=== PATIENT | male | born 2005 | race Caucasian/White ===

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

== ENCOUNTER 2023-03-27 20:02 | Emergency (ER) | payer OTHER, BC, MEDICAID, SELFPAY ==
[2023-03-27 20:07] VITALS: BP 150/83; PULSE 86; RESP 16; TEMP 36.6; O2SAT 100; BMI 39.2
[2023-03-27 20:23] LABS: Basophils # 0.1 10^3/uL (0.0-0.1); Basophils % 0.6 %; Eosinophils # 0.4 10^3/uL (0.0-0.8); Eosinophils % 4.6 %; Hematocrit 48.2 % (42.0-52.0); Hemoglobin 16.2 g/dL (11.7-16.6); Lymphocytes # 3.3 10^3/uL (1.5-6.5); Lymphocytes % 38.2 %; Mean Corpuscular HGB Conc 33.6 g/dL (30.0-36.0); Mean Corpuscular Hemoglobin 28.8 pg (28.0-34.0); Mean Corpuscular Volume 85.6 fl (80-94); Mean Platelet Volume 9.9 fL (7.4-10.4); Monocytes # 0.8 10^3/uL (0.2-0.9); Monocytes % 9.8 %; Neutrophils # 3.97 10^3/uL (1.8-8.0); Neutrophils % 46.4 %; Nucleated Red Blood Cells % 0 %; Platelet Count 283 10^3/cmm (130-400); Red Blood Count 5.63 10^6/uL (4.1-5.3); White Blood Count 8.5 10^3/uL (4.5-13.0)
--- NOTE | 2023-03-27 20:27 | ED_ITS ---
HPI - Abdominal Pain General: Chief Complaint: Abdominal Pain Stated Complaint: Abd pain Time Seen by Provider: 03/27/23 20:27 History of Present Illness: 17-year-old male presenting with abdominal pain that is progressively worsening. Worse with eating especially greasy and fatty foods. Moderate to severe intensity with some nausea vomiting. Intermittent. Upper abdominal and right upper quadrant tenderness to palpation in location of pain. No other specific changes in health, exacerbating, or alleviating factors identified. Onset (ago): week(s) Pain Consistency: intermittent Location: Epigastric and RUQ Quality: stabbing Exacerbating factors: eating Associated Symptoms: Reports nausea and vomiting; Denies fever(s), hematemesis and melena Review of Systems General: Reports: 10 or more systems reviewed and unremarkable except in HPI and below Const: Denies: fever(s) GI: Reports: nausea and vomiting; Denies: hematemesis or melena PFS ED PFSH: Medical History No pertinent past medical history Social History Smoking and tobacco status: current every day smoker cigarettes Alcohol intake: never Substance/Drug Use: never Physical Exam Const: COMMON NORMALS: alert GENERAL APPEARANCE: cooperative and well developed HENMT: COMMON NORMALS: normocephalic and atraumatic HEAD & SCALP: normocephalic and atraumatic Eye: COMMON NORMALS: conjunctivae normal CONJUNCTIVA: Yes conjunctivae normal SCLERA: sclerae normal Neck/C-Spine: COMMON NORMALS: supple GENERAL: Yes trachea midline Resp: COMMON NORMALS: normal respiratory effort EFFORT & INSPECTION: Yes able to speak in complete sentences Cardio: COMMON NORMALS: regular rate and regular rhythm RATE: regular rate RHYTHM: regular rhythm GI: COMMON NORMALS: Soft to palpation PALPATION: Yes Soft to palpation, Yes Tenderness to palpation present (GI) Details: RUQ, No Guarding due to palpation present (GI) and No Rigid due to palpation PERCUSSION: normal to percussion Extremity: GENERAL: Yes normal exam except as noted and No edema Neuro: COMMON NORMALS: moves all extremities SENSORIUM/ORIENTATION: Yes alert and No Orientation impaired Psych: COMMON NORMALS: mental status grossly normal and Normal thought process present THOUGHT PROCESS: Normal thought process present Course Vital Signs: Vital signs: Vital Signs Temperature 97.9 F 03/27/23 20:07 Pulse Rate 88 03/27/23 22:39 Respiratory Rate 18 03/27/23 22:39 Blood Pressure 154/104 03/27/23 22:39 Pulse Oximetry 92 03/27/23 22:39 Oxygen Delivery Me thod Room Air 03/27/23 20:07 MDM - Abdominal Pain Medical Decision Making 17-year-old male presenting with epigastric and right upper quadrant pain. Abdominal tenderness to palpation without acute surgical abdomen. Nontoxic. No fevers. Labs with no leukocytosis, normal hemoglobin and platelet count. Unremarkable hematologic panel. Normal liver enzymes and lipase. No UTI. Gallbladder ultrasound shows possible cholelithiasis though no evidence of cholecystitis. Patient improved with GI cocktail and Protonix. Possible biliary colic or gastritis. No indication for CT. Plan for outpatient follow-up. The results of ED evaluation were discussed with the patient including prescriptions and/or symptomatic cares (if applicable) including appropriate and responsible use, followup plan, and return precautions. The patient verbalized understanding and felt safe for discharge. Medical Records I reviewed the patient's medical records. Lab Data I reviewed the patient's lab results. 03/27/23 20:18 03/27/23 20:18 Labs/Radiology: Radiology Impressions Gallbladder Ultrasound 03/27/23 20:57 IMPRESSION: 1. Equivocal cholelithiasis, negative for cholecystitis. 2. Hepatic steatosis. Laboratory Results WBC 8.5 10^3/uL (4.5-13.0) 03/27/23 20:18 RBC 5.63 10^6/uL (4.1-5.3) H 03/27/23 20:18 Hgb 16.2 g/dL (11.7-16.6) 03/27/23 20:18 Hct 48.2 % (42.0-52.0) 03/27/23 20:18 MCV 85.6 fl (80-94) 03/27/23 20:18 MCH 28.8 pg (28.0-34.0) 03/27/23 20:18 MCHC 33.6 g/dL (30.0-36.0) 03/27/23 20:18 RDW 13.0 % (12.1-15.1) 03/27/23 20:18 Plt Count 283 10^3/cmm (130-400) 03/27/23 20:18 MPV 9.9 fL (7.4-10.4) 03/27/23 20:18 Neut % (Auto) 46.4 % 03/27/23 20:18 Lymph % (Auto) 38.2 % 03/27/23 20:18 [place] % (Auto) 9.8 % 03/27/23 20:18 Eos % (Auto) 4.6 % 03/27/23 20:18 Baso % (Auto) 0.6 % 03/27/23 20:18 Neut # (Auto) 3.97 10^3/uL (1.8-8.0) 03/27/23 20:18 Lymph # (Auto) 3.3 10^3/uL (1.5-6.5) 03/27/23 20:18 [place] # (Auto) 0.8 10^3/uL (0.2-0.9) 03/27/23 20:18 Eos # (Auto) 0.4 10^3/uL (0.0-0.8) 03/27/23 20:18 Baso # (Auto) 0.1 10^3/uL (0.0-0.1) 03/27/23 20:18 Nucleated RBC % (auto) 0 % 03/27/23 20:18 Nucleated RBCs # 0.0 /100WBC 03/27/23 20:18 Sodium 140 mmol/L (136-145) 03/27/23 20:18 Potassium 3.9 mmol/L (3.5-5.1) 03/27/23 20:18 Chloride 104 mmol/L (98-107) 03/27/23 20:18 Carbon Dioxide 26 mmol/L (22-29) 03/27/23 20:18 Anion Gap 13.9 (5-19) 03/27/23 20:18 BUN 13 mg/dL (6-20) 03/27/23 20:18 Creatinine 1.0 mg/dL (0.7-1.2) 03/27/23 20:18 GFR Calculation 96.3 mL/min (90-130) 03/27/23 20:18 Glucose 92 mg/dL (65-115) 03/27/23 20:18 Calculated Osmolality 290 mOsm/kg (285-295) 03/27/23 20:18 Calcium 9.4 mg/dL (8.5-10.5) 03/27/23 20:18 Total Bilirubin 0.6 mg/dL (0.15-1.2) 03/27/23 20:18 AST 20 U/L (0-40) 03/27/23 20:18 ALT 37 U/L (0-41) 03/27/23 20:18 Alkaline Phosphatase 116 U/L (40-130) 03/27/23 20:18 Total Protein 7.5 g/dL (6.6-8.7) 03/27/23 20:18 Albumin 4.8 g/dL (3.5-5.2) 03/27/23 20:18 Globulin 2.7 g/dL (1.3-4.6) 03/27/23 20:18 Lipase 18 U/L (13-60) 03/27/23 20:18 Urine Color Yellow (Yellow) 03/27/23 21:13 Urine Appearance Hazy (CLEAR) A 03/27/23 21:13 Urine pH 5 (5-7) 03/27/23 21:13 Ur Specific [place] 1.020 (1.005-1.030) 03/27/23 21:13 Urine Protein Trace (Negative) 03/27/23 21:13 Urine Glucose (UA) Norm (Normal) 03/27/23 21:13 Urine Ketones 1+ (Negative) H 03/27/23 21:13 Urine Blood Neg (Negative) 03/27/23 21:13 Urine Nitrate Negative (Negative) 03/27/23 21:13 Urine Bilirubin 1+ (Negative) H 03/27/23 21:13 Urine Urobilinogen Norm mg/dL (Negative) 03/27/23 21:13 Ur Leukocyte Esterase Negative (Negative) 03/27/23 21:13 Urine RBC 0-4 /hpf (0-2) H 03/27/23 21:13 Urine WBC 0-4 /hpf (0-5) H 03/27/23 21:13 Ur Squamous Epith Cells 0-4 /hpf (0-5) H 03/27/23 21:13 Amorphous Sediment Not Reportable 03/27/23 21:13 Urine Bacteria 1+ /hpf (NONE) H 03/27/23 21:13 Urine Mucus 2+ /hpf 03/27/23 21:13 Discharge Plan Discharge Patient Disposition: Home Clinical Impression: Abdominal pain Condition: Stable Prescriptions: New Protonix 40 mg tablet,delayed release (DR/EC) 40 mg PO BID 14 Days Qty: 28 0RF Carafate 1 gram tablet 1 g PO TID PRN (Reason: abdominal pain) Qty: 30 0RF No Action Protonix 40 mg tablet,delayed release (DR/EC) 40 mg PO DAILY 30 Days Qty: 30 3RF Discharge Orders: Discharge ED (Routine); Ordered 03/27/23 Ordered By: David Anders Referrals: Carol Ann Mayes FNP [Primary Care Provider] - Discharge Diet: Advance as tolerated and Clear Liquid Discharge Activity: Increase activity as tolerated Patient Instructions: Gallstones (ED), Diet for Stomach Ulcers and Gastritis (ED), Abdominal Pain (ED) Activity Restrictions/Additional Instructions: Thank you for visiting the emergency department. You were seen and evaluated for abdominal pain. The exact cause of your symptoms is unclear however may be related to gallstones without evidence of infection of gallbladder or gastritis. I will prescribe medications. I will also message case management for general surgery follow-up. Return for uncontrolled pain, fevers, inability to tolerate oral intake, yellowing of the eyes or skin, or anything else that you are concerned about and feel needs emergency department evaluation. Coding Level of Care Code ED Amf Mechanic for Guera Bonilla
[2023-03-27 20:45] LABS: Alanine Aminotransferase 37 U/L (0-41); Albumin Level 4.8 g/dL (3.5-5.2); Alkaline Phosphatase 116 U/L (40-130); Anion Gap 13.9 (5-19); Aspartate Amino Transferase 20 U/L (0-40); Blood Urea Nitrogen 13 mg/dL (6-20); Calcium 9.4 mg/dL (8.5-10.5); Carbon Dioxide 26 mmol/L (22-29); Chloride 104 mmol/L (98-107); Globulin 2.7 g/dL (1.3-4.6); Glomerular Filtration Rate 96.3 mL/min (90-130); Glucose 92 mg/dL (65-115); Lipase 18 U/L (13-60); Osmolality Calculated 290 mOsm/kg (285-295); Potassium 3.9 mmol/L (3.5-5.1); Sodium 140 mmol/L (136-145); Total Bilirubin 0.6 mg/dL (0.15-1.2); Total Protein 7.5 g/dL (6.6-8.7)
--- NOTE | 2023-03-27 20:57 | USR_ITS ---
PROCEDURE INFORMATION: Exam: US Abdomen, Limited; Right Upper Quadrant Exam date and time: 03/27/2023 9:36 PM Age: 17 years old Clinical indication: Abdominal pain; Epigastric; Additional info: Epigastric and ruq abd pain TECHNIQUE: Imaging protocol: Real time ultrasound of the abdomen with image documentation. Limited exam focused on the right upper quadrant. COMPARISON: US gall bladder [id number] 08/16/2022 6:36 AM FINDINGS: Liver: Hepatic steatosis. Gallbladder: Equivocal cholelithiasis, negative for cholecystitis. Biliary ducts: Normal. No stones. No dilation. Pancreas: Visualized pancreas is unremarkable. Right kidney: Normal. No mass. No hydronephrosis. US/US gall bladder [id number] IMPRESSION: 1. Equivocal cholelithiasis, negative for cholecystitis. 2. Hepatic steatosis.
[2023-03-27] MEDS: lidocaine 2% viscous 15 ML, aluminum-mag hydrox-simethicon 30 ML, sucralfate oral liq 1 GM PO (21:07)
[2023-03-27] MEDS: pantoprazole 40 mg SDV 80 MG IVP (21:08)
[2023-03-27 21:19] VITALS: BP 137/91; PULSE 85; O2SAT 95
[2023-03-27 21:49] LABS: Blood Urine Neg (Negative); Glucose Urine UA Norm (Normal); Ketones Urine 1+ (Negative); Nitrate Urine Negative (Negative); Protein Urine Trace (Negative); Urine Appearance Hazy (CLEAR); Urine Color Yellow (Yellow); pH Urine 5 (5-7)
[2023-03-27 21:50] LABS: Add Urine Microscopic? YES; Bilirubin Urine 1+ (Negative); Leukocyte Esterase Urine Negative (Negative); Urobilinogen Urine Norm (Negative)
[2023-03-27 21:51] LABS: Bacteria Urine 1+ /hpf; Mucus Urine 2+ /hpf; RBC Urine 0-4 /hpf (0-2); Squamous Epithelial Cell Urine 0-4 /hpf (0-5); WBC Urine 0-4 /hpf (0-5)
[2023-03-27 21:54] VITALS: BP 137/91; PULSE 86; O2SAT 95
[2023-03-27 22:29] VITALS: BP 157/99; PULSE 85; O2SAT 96
[2023-03-27 22:39] VITALS: BP 154/104; PULSE 88; RESP 18; O2SAT 92
--- NOTE | 2023-03-28 09:50 | PC.SOCIAL ---
Addendum entered by Zuleyka Lopez 04/14/23 14:23: This appointment was cancelled Original Note: General Surgery Referral sent to general surgery at this time for f/u. Clinic to contact patient with appt date/time.
== END 2023-03-27 22:44 | disposition home or self-care (01) ==
PROVIDERS: Emergency Medicine; Emergency Provider Emergency Medicine; PCP Nurse Practitioner Family
DX: R10.13 Epigastric pain (principal); R10.11 Right upper quadrant pain; F17.210 Nicotine dependence, cigarettes, uncomplicated; K80.20 Calculus of gallbladder without cholecystitis without obstruction; K76.0 Fatty (change of) liver, not elsewhere classified
CPT/HCPCS: 36415; 76705; 80053; 81001; 83690; 85025; 96374; 99284; C9113

== ENCOUNTER 2023-05-13 08:13 | Outpatient (CLI) | payer OTHER, BC, MEDICAID, SELFPAY ==
--- NOTE | 2023-05-13 08:31 | FL_ITS ---
WS: [id number] MI barium swallow [id number] REASON FOR EXAM: DYSPHAGIA food sticking. FLUOROSCOPY TIME: 1min [id number] # OF SPOT FILMS: Multiple PROCEDURE: Patient was examined in the upright PA and lateral projection and in the prone NEGRETE projection. Patient was examined from the oropharynx to the fundus of the stomach. The swallowing of thin barium was monitored fluoroscopically and documented with multiple spot films. In the upright position, there was normal motility and anatomy of the oropharynx and cervical esophag us. In the upright position the thoracic esophagus demonstrated normal motility and anatomy. In the prone NEGRETE position there were intermittent episodes of esophageal spasm with persistent rete ntion of small amount of barium in the distal two thirds of the esophagus. No tertiary contractions. No retrograde reflux. There was no stricture and no hiatal hernia. There was no gastroesophageal reflux. FINDINGS: No abnormality of the esophagus in the upright position. There appear to be intermittent episodes of dysmotility in the thoracic esophagus when the patient is in the prone NEGRETE position. This would not seem to be of clinical significance since the dysphagia is reported in the upright position. IMPRESSION: Normal study in the upright position. Finding in the supine NEGRETE position which seems unlikely to be clinically significant as above.
== END 2023-05-13 08:14 | disposition home or self-care (01) ==
PROVIDERS: PCP Nurse Practitioner Family; Visit Provider Nurse Practitioner Family
DX: R13.10 Dysphagia, unspecified (principal)
CPT/HCPCS: 74220

== ENCOUNTER → 2024-02-16 10:59 | Outpatient (BNVA) | payer OTHER, SELFPAY | PROVIDERS: PCP Nurse Practitioner Family; Visit Provider Emergency Medicine | DX: J02.9 Acute pharyngitis, unspecified (principal); B34.9 Viral infection, unspecified; J98.8 Other specified respiratory disorders; B97.89 Other viral agents as the cause of diseases classified elsewhere | CPT/HCPCS: 87071; 87400; 87880 ==